=== PATIENT | male | born 1960 | race Caucasian/White ===

== ENCOUNTER 2016-10-19 06:30 | Emergency (ER) | payer OTHER ==
[~2016-10-19] VITALS: Wt 70.0 kg
[2016-10-19] MEDS ORDERED: SOD CHLORIDE 0.9% 1,000 ML IV STA (06:41)
[2016-10-19 07:09] LABS: ADD SCAN DIFF NO
[2016-10-19 07:14] LABS: BASOPHILS % 0.6 % (0.0-2.0); EOSINOPHILS # 0.3 10^3/ul (0.0-0.5); HEMATOCRIT 42.1 % (42.0-52.0); HEMOGLOBIN 14.5 g/dl (14.0-18.0); LYMPHOCYTES # 2.1 10^3/ul (0.8-2.9); LYMPHOCYTES % 32.5 % (15.0-51.0); MEAN CORPUSCULAR HEMOGLOBIN 29.9 pg (29.0-33.0); MEAN CORPUSCULAR HGB CONC 34.4 g/dl (32.0-37.0); MEAN CORPUSCULAR VOLUME 86.8 fl (82.0-101.0); MEAN PLATELET VOLUME 9.5 fl (7.4-10.4); MONOCYTE # 0.4 10^3/ul (0.3-0.9); MONOCYTES % 6.5 % (0.0-11.0); NEUTROPHIL # 3.6 10^3/ul (1.6-7.5); NEUTROPHILS % 55.9 % (39.0-77.0); PLATELET COUNT 198 10^3/UL (140-415); RED BLOOD COUNT 4.85 10^6/ul (4.70-6.10); RED CELL DISTRIBUTION WIDTH 11.6 % (11.5-14.5); WHITE BLOOD COUNT 6.5 10^3/ul (4.8-10.8)
--- NOTE | 2016-10-19 07:23 | RADRPT ---
PROCEDURE: CT Brain without contrast. CLINICAL INDICATION: Syncope TECHNIQUE: CT scan of the brain was performed on a multidetector high-resolution CT scan. Axial im aging was obtained of the brain without contrast administration. Coronal and sagittal reformatted i mages were obtained from the axial source images. Standard CT scan of the head without contrast prot ocols were performed. The total exam CTDI equals 43.77 mGy and the total exam DLP equals 720.23 mGy-cm. One or more of the following dose reduction techniques were used: - Automated exposure control. - Adjustment of the mA and/or kV according to patient size. Use of iterative reconstruction technique. COMPARISON: None. FINDINGS: The ventricular system and peripheral CSF spaces are unremarkable. Negative for intracranial masses hemorrhages or midline shift. The rushing-white matter junction is unremarkable. The bones and billy rium are intact. There is mild chronic bilateral ethmoid and left maxillary sinus disease. The mas toids are unremarkable. IMPRESSION: No evidence of intracranial masses hemorrhages or midline shift. RPTAT:AAJJ Physician Len Date Time Electronically viewed and signed by Physician Len on 10/19/2016 07:23 /
[2016-10-19 07:27] LABS: CHLORIDE 110 mmol/L (97-110); SODIUM 141 mmol/L (135-144)
[2016-10-19 07:28] LABS: POTASSIUM 3.6 mmol/L (3.5-5.1)
--- NOTE | 2016-10-19 07:28 | ERA ---
ER Documentation Chief Complaint Date/Time DATE: 10/19/16 TIME: 07:25 Chief Complaint POSSIBLE SYCNOPAL EPISODE THIS AM NO NEURO DEFICIT. WITNESSED BY EMS HPI This is a 55-year-old male with a syncopal episode 3 this morning. Patient states just before arrival the patient had a cramp in his left calf this morning after he got up to go to the restroom. He said he got up because he felt nauseated and thought he was going to vomit. He said when he stood up he got a cramp in his left leg and then he said he felt very nauseated and slightly dizzy. His says that she then heard a thud and found him on the floor passed out. The patient does not remember passing out. The states she checked on him and he was breathing and felt his heart beating but it felt slow to her. He then woke up after about 30 seconds to a minute. She said he tried to get up off the floor then passed out again. She had him lay there and she called the ambulance. When the ambulance arrived his blood sugar was 126 and the states that his heart rate was 24 on the monitor. The patient was being transferred onto the EMS stretcher where he again had another passing out episode. He said he has never had any shortness of breath or chest pain. His no focal neurological complaints such as numbness or weakness loss of vision or speech. Denies any cardiac problems or significant medical history ROS All systems reviewed and are negative except as per history of present illness. Medications Home Meds No Active Prescriptions or Reported Meds Allergies Allergies: Coded Allergies: No Known Allergy (Unverified , 10/19/16) PMhx/Soc Medical and Surgical Hx: pt denies Medical Hx, pt denies Surgical Hx History of Surgery: No Anesthesia Reaction: No Hx Neurological Disorder: No Hx Respiratory Disorders: No Hx Cardiac Disorders: No Hx Psychiatric Problems: No Hx Miscellaneous Medical Probl: No Hx Alcohol Use: No Hx Substance Use: No Hx Tobacco Use: No Smoking Status: Never smoker FmHx Family History: No coronary disease Physical Exam Vitals Vital Signs Date Time Temp Pulse Resp B/P Pulse Ox O2 Delivery O2 Flow Rate FiO2 10/19/16 08:35 82 19 116/81 100 Room Air 10/19/16 07:33 118/77 128/78 119/87 10/19/16 06:35 98.8 65 20 120/74 98 Physical Exam Const: Well-developed, well-nourished Head: Scalp laceration to the vertex of the scalp approximately 3 cm, normocephalic Eyes: Normal Conjunctiva, PERRLA, EOMI, normal sclera, no nystagmus ENT: Normal External Ears, Nose and Mouth, moist mucus membranes. Neck: Full range of motion. No meningismus, no lymphadenopathy. Resp: Clear to auscultation bilaterally, no wheezing, rhonchi, rales Cardio: Regular rate and rhythm, heart rate 66, no murmurs, S1 S2 present Abd: Soft, non tender x 4, non distended. Normal bowel sounds, no guarding or rebound, no pulsitile abdominal masses or bruits Skin: No petechiae or rashes, no ecchymosis , no maculopapular rash Back: No midline or flank tenderness Ext: No cyanosis, or edema, FROM x 4, normal inspection, neurovascularly intact x 4 Neur: Awake and alert, STR 5/5 x 4, sensation intact x 4, no focal findings, cerebellum intact Psych: Normal Mood and Affect Result Diagram: 10/19/16 0650 10/19/16 0650 Results 24 hrs Laboratory Tests Test 10/19/16 06:50 White Blood Count 6.510^3/ul Red Blood Count 4.8510^6/ul Hemoglobin 14.5g/dl Hematocrit 42.1% Mean Corpuscular Volume 86.8fl Mean Corpuscular Hemoglobin 29.9pg Mean Corpuscular Hemoglobin Concent 34.4g/dl Red Cell Distribution Width 11.6% Platelet Count 75582^3/UL Mean Platelet Volume 9.5fl Neutrophils % 55.9% Lymphocytes % 32.5% Monocytes % 6.5% Eosinophils % 4.0% Basophils % 0.6% Nucleated Red Blood Cells % 0.0/100WBC Neutrophils # 3.610^3/ul Lymphocytes # 2.110^3/ul Monocytes # 0.410^3/ul Eosinophils # 0.310^3/ul Basophils # 0.010^3/ul Nucleated Red Blood Cells # 0.010^3/ul Prothrombin Time 13.4Sec Prothrombin Time Ratio 1.0 INR International Normalized Ratio 1.02 Activated Partial Thromboplast Time 26.4Sec Sodium Level 141mmol/L Potassium Level 3.6mmol/L Chloride Level 110mmol/L Carbon Dioxide Level 26mmol/L Anion Gap 9 Blood Urea Nitrogen 21mg/dl Creatinine 0.89mg/dl Glucose Level 122mg/dl Calcium Level 9.0mg/dl Troponin I < 0.012ng/ml Current Medications Medications (Trade) Dose Ordered Sig/Micky Route PRN Reason Start Time Stop Time Status Last Admin Dose Admin Sodium Chloride (NS) 1,000 ml @ 1,000 mls/hr Q1H STAT IV 10/19/16 06:41 10/19/16 07:40 DC 10/19/16 06:56 Procedures/MDM PROCEDURE: CT Brain without contrast. CLINICAL INDICATION: Syncope TECHNIQUE: CT scan of the brain was performed on a multidetector high- resolution CT scan. Axial imaging was obtained of the brain without contrast administration. Coronal and sagittal reformatted images were obtained from the axial source images. Standard CT scan of the head without contrast protocols were performed. The total exam CTDI equals 43.77 mGy and the total exam DLP equals 720.23 mGy- cm. One or more of the following dose reduction techniques were used: - Automated exposure control. - Adjustment of the mA and/or kV according to patient size. Use of iterative reconstruction technique. COMPARISON: None. FINDINGS: The ventricular system and peripheral CSF spaces are unremarkable. Negative for intracranial masses hemorrhages or midline shift. The rushing-white matter junction is unremarkable. The bones and calvarium are intact. There is mild chronic bilateral ethmoid and left maxillary sinus disease. The mastoids are unremarkable. IMPRESSION: No evidence of intracranial masses hemorrhages or midline shift. RPTAT:AAJJ Physician Len Date Time Electronically viewed and signed by Physician Len on 10/19/2016 07:23 BM/ CC: DARA CEDILLO DO EKG: Rate/Rhythm: Normal Sinus Rhythm,NL intervals, increased R to S ratio in tV1 QRS, ST, QT: NORMAL OR, QRS, QT] Impression: Abnormal EKG] Laceration Repair by me: Anesthesia: none Location: Scalp Tendon/Joint/Nerves: No injury Foreign body: None detected after copious irrigation and exploration Technique: Simple Interrupted clarisse 2 Complexity: No subcutaneous sutures/mucosal repair/ edge excision Post Closure Length: 3 cm Patient's bleeding was easily controlled in the department and there is no indication of anemia. 48 hour wound check. Scar minimization instructions given. Patient's syncopal symptoms are unstable at this time and require inpatient workup. No evidence of PE or dissection at this time but occult ischemia or fatal dysrhythmia cannot be ruled out. Patient likely is having some bradycardia as a cause of his syncope if the is correct in stating heart rate was 24. Patient's heart rates in the 60s here. Patient is not on any cardiac medications Patient is a [place] patient and will transfer to [facility] discussed this with her doctor already Departure Diagnosis: Primary Impression: Syncope Qualified Code: R55 - Syncope, unspecified syncope type Additional Impression: Scalp laceration Qualified Code: S01.01XA - Scalp laceration, initial encounter Condition: Stable DARA CEDILLO DO October 19, 2016 07:28
--- NOTE | 2016-10-19 07:29 | RADRPT ---
PROCEDURE: XR Chest. CLINICAL INDICATION: Syncope TECHNIQUE: Single frontal view of the chest was obtained COMPARISON: None FINDINGS: The heart and mediastinum are within normal limits. The lungs are clear. There is no pleural effusion or pneumothorax. RPTAT: AA IMPRESSION: No acute disease. .Ricardo Mares MD, Date Time Electronically viewed and signed by .Ricardo Mares MD, on 10/19/2016 07:28 .S/
[2016-10-19 07:30] LABS: ANION GAP 9 (8-16); CARBON DIOXIDE 26 mmol/L (21-31); CREATININE 0.89 mg/dl (0.61-1.24)
[2016-10-19 07:31] LABS: BLOOD UREA NITROGEN 21 mg/dl (7-20); GLUCOSE 122 mg/dl (70-220)
[2016-10-19 07:37] LABS: INR 1.02; PARTIAL THROMBOPLASTIN TIME 26.4 Sec (25.0-35.0); PROTIME 13.4 Sec (12.2-14.2)
[2016-10-19 07:44] LABS: TROPONIN-I < 0.012 ng/ml (0.00-0.12)
[2016-10-19 09:32] VITALS: BP 124/76; PULSE 71; RESP 15; TEMP 98.5
== END 2016-10-19 12:19 | disposition short-term general hospital (02) ==
LOC: E/R 06:30
DX: R55 Syncope and collapse (principal); S01.01XA Laceration without foreign body of scalp, initial encounter; X58.XXXA Exposure to other specified factors, initial encounter; Y92.9 Unspecified place or not applicable
CPT/HCPCS: 12002; 36415; 70450; 71010; 80048; 84484; 85025; 85610; 85730; 93005; 99285; J7030